=== PATIENT | male | born 1995 | race Caucasian/White ===

== ENCOUNTER 2017-05-10 10:22 | Emergency (ER) | payer OTHER, SELFPAY ==
[2017-05-10 10:23] VITALS: BP 129/76; PULSE 77; RESP 11; TEMP 37.1; O2SAT 100; BMI 21.8
--- NOTE | 2017-05-10 10:40 | RAD_ITS ---
STUDY: X-RAY CHEST REASON FOR EXAM: Male, 21 years old. Chronic left-sided chest pain. TECHNIQUE: PA and lateral views of the chest. COMPARISON: None. FINDINGS: EKG electrodes are seen. The lungs are clear and expanded. There is no demonstrated pleural abnormality. Normal size heart. Normal mediastinum and everardo. Normal visualized pulmonary arteries. Normal visualized aortic arch and descending thoracic aorta. Normal visualized thoracic spine. Normal visualized ribs, clavicles, and shoulders. There is no demonstrated abnormality of the visualized soft tissue structures of the upper abdomen. RAD/Chest PA and Lateral IMPRESSION: Normal x-ray examination of the chest. Electronically Signed: Roman Stewart MD at 11:04 EST Tel [phone], Service support ,
--- NOTE | 2017-05-10 11:15 | EKG12_ITS ---
Test Reason : CP Blood Pressure : / mmHG Vent. Rate : 072 BPM Atrial Rate : 072 BPM P-R Int : 106 ms QRS Dur : 092 ms QT Int : 362 ms P-R-T Axes : 039 079 032 degrees QTc Int : 396 ms Sinus rhythm with short NC Confirmed by DIANE SMITH, VICKEY ([id number]), news editor SHAYY CALDWELL ([id number] on 05/13/2017 11:18:37 AM Referred By: Confirmed By:VICKEY CONTRERAS MD
[2017-05-10 11:26] VITALS: BP 122/65; PULSE 69; RESP 16; O2SAT 100
--- NOTE | 2017-05-10 11:37 | ED.VISSUMM ---
- ER Visit Summary Date of Service: 05/10/17 Chief Complaint: Intermittent left-sided chest pain History of Present Illness: The patient is a 21 M presents because of intermittent left-sided chest pain. He has had pain off and on for 1 month. Initially thought he may have bruised a rib. He denies fever, chills night sweats. He denies rhinorrhea, earache sore throat. He denies cough or pleuritic pain. He has no history of VTE or any risk factors. He denies any leg pain, swelling or discoloration. He denies any GI symptoms. Physical Examination: Vital signs are normal for age. Head is atraumatic normocephalic. Pupils are equal round reactive. Extraocular muscles are intact. TMs are pearly white with landmarks noted. Nares patent with no drainage. Posterior pharynx without erythema or exudate. Uvula is midline. There is no dysphonia or dysphasia. Trachea is midline. There is no stridor with auscultation of the neck. Heart is regular without murmur, gallop or rub. S1 and S2 are normal. Lungs are clear to auscultation with good movement of air bilaterally. Abdomen is soft nontender. There is no hepatosplenomegaly. There is no asymmetry, swelling, discoloration, leg vein distention, palpable cords or tenderness along the distribution of the deep venous system. There is no evidence of trauma and there is no rash or lesions noted. Test Results: EKG obtained per nursing protocol revealed a sinus rhythm rate of 72 with shortened [place] interval. Two-view chest x-ray is negative for pneumothorax, effusion, infiltrate and the cardiac silhouette and mediastinum are normal. Bony structures are normal. Emergency Department Course and Treatment: X-rays obtained to evaluate for pneumothorax etc. EKG per nurse protocol. Treatment Plan: Appropriate home-going instructions Disposition: Discharged to home Impression: Intermittent left-sided chest pain unknown etiology initial encounter This note was generated with [email or web address] dictation software. It may contain incorrect words, spelling, and punctuation that were not noted in review of the chart prior to signing ED Disposition - Plan for ED Patient: Disposition: Home or Assisted Living Chief Complaint: Chest Pain Instructions: ED Chest Pain Atypical Unkn Cause Referrals: Nikko Whaley MD [Primary Care Provider] - As Needed
--- NOTE | 2017-05-10 11:40 | ED.DCSUM_ITS ---
- ER Visit Summary Date of Service: 05/10/17 Chief Complaint: Intermittent left-sided chest pain History of Present Illness: The patient is a 21 M presents because of intermittent left-sided chest pain. He has had pain off and on for 1 month. Initially thought he may have bruised a rib. He denies fever, chills night sweats. He denies rhinorrhea, earache sore throat. He denies cough or pleuritic pain. He has no history of VTE or any risk factors. He denies any leg pain, swelling or discoloration. He denies any GI symptoms. Physical Examination: Vital signs are normal for age. Head is atraumatic normocephalic. Pupils are equal round reactive. Extraocular muscles are intact. TMs are pearly white with landmarks noted. Nares patent with no drainage. Posterior pharynx without erythema or exudate. Uvula is midline. There is no dysphonia or dysphasia. Trachea is midline. There is no stridor with auscultation of the neck. Heart is regular without murmur, gallop or rub. S1 and S2 are normal. Lungs are clear to auscultation with good movement of air bilaterally. Abdomen is soft nontender. There is no hepatosplenomegaly. There is no asymmetry, swelling, discoloration, leg vein distention, palpable cords or tenderness along the distribution of the deep venous system. There is no evidence of trauma and there is no rash or lesions noted. Test Results: EKG obtained per nursing protocol revealed a sinus rhythm rate of 72 with shortened [place] interval. Two-view chest x-ray is negative for pneumothorax, effusion, infiltrate and the cardiac silhouette and mediastinum are normal. Bony structures are normal. Emergency Department Course and Treatment: X-rays obtained to evaluate for pneumothorax etc. EKG per nurse protocol. Treatment Plan: Appropriate home-going instructions Disposition: Discharged to home Impression: Intermittent left-sided chest pain unknown etiology initial encounter This note was generated with [employer] dictation software. It may contain incorrect words, spelling, and punctuation that were not noted in review of the chart prior to signing ED Disposition - Plan for ED Patient: Disposition: Home or Assisted Living Chief Complaint: Chest Pain Instructions: ED Chest Pain Atypical Unkn Cause Referrals: Nikko Whaley MD [Primary Care Provider] - As Needed
[2017-05-10 11:49] VITALS: BP 118/73; PULSE 71; RESP 11; O2SAT 100
== END 2017-05-10 11:52 | disposition home or self-care (01) ==
PROVIDERS: Emergency Provider Emergency Medicine; Family Provider Family Medicine; PCP Family Medicine
DX: R07.9 Chest pain, unspecified (principal)
CPT/HCPCS: 71046; 93005; 99282; A4216

== ENCOUNTER 2018-01-15 18:58 | Emergency (ER) | payer OTHER, SELFPAY ==
[2018-01-15 19:00] VITALS: BP 123/70; PULSE 88; RESP 17; TEMP 37.2; O2SAT 97; BMI 23.3
--- NOTE | 2018-01-15 20:10 | ED.VISSUMM ---
- ER Visit Summary Date of Service: 01/15/18 Chief Complaint: I have bronchitis History of Present Illness: The patient is a 22 M who presents with chief complaint of I have bronchitis . Patient denies fever or chills. He denies rhinorrhea, congestion, postnasal drainage, sore throat or earache. He denies cough. He states he has shortness of breath and difficulty breathing. He denies chest pain. He denies history of PE or DVT and he has no risk factors. He denies leg pain, swelling discoloration. He works in the heating and cooling industry. Mother states when he initially started he is around dust. He states he is no longer around dust. He is a non-smoker. There is no family history of asthma. Physical Examination: Vital signs noted and blood pressure slightly elevated 123/70. Head is atraumatic normocephalic. Pupils are equal round reactive. Extraocular muscles are intact. TMs are pearly white with landmarks noted. Nares patent with no drainage. Posterior pharynx without erythema or exudate. Uvula is midline. There is no dysphonia or dysphasia. Trachea is midline. There is no stridor with auscultation of the neck. Heart is regular without murmur, gallop or rub. With forced expiration rhonchi were noted right greater than left. Abdomen soft nontender. There is no asymmetry, swelling, discoloration, leg vein distention, palpable cords or tenderness along the distribution of the deep venous system. Neuro exam is nonfocal Test Results: None Emergency Department Course and Treatment: 6 puffs metered-dose inhaler with spacer and reassessment. On reassessment there is no wheezing or rhonchi noted Treatment Plan: Note for work and appropriate home-going instructions Disposition: Discharged home in stable improved condition Impression: Bronchospasm This note was generated with [employer] dictation software. It may contain incorrect words, spelling, and punctuation that were not noted in review of the chart prior to signing ED Disposition - Plan for ED Patient: Disposition: Home or Assisted Living Chief Complaint: Chest Other Instructions: ED Wheezing Prescriptions: Albuterol Inhaler [Ventolin Hfa] 2 puff INHALATION Q4H PRN PRN #1 inhaler PRN Reason: Dyspnea or wheezing Referrals: Lazaro Beck, [facility] [Primary Care Provider] - As Needed
[2018-01-15 20:23] VITALS: BP 136/67; PULSE 88; RESP 17; O2SAT 97
== END 2018-01-15 20:24 | disposition home or self-care (01) ==
PROVIDERS: Emergency Provider Emergency Medicine; Family Provider Nurse Practitioner Family; PCP Nurse Practitioner Family
DX: J98.01 Acute bronchospasm (principal)
CPT/HCPCS: 94640; 99282

== ENCOUNTER → 2021-04-03 | Outpatient (CLI) | payer OTHER, SELFPAY | END | disposition home or self-care (01) | LOC: LABSPEC 13:05 | PROVIDERS: PCP Nurse Practitioner Family; Referring Provider Physician Assistant Medical; Visit Provider Physician Assistant Medical | DX: U07.1 COVID-19 (principal) | CPT/HCPCS: 87635; U0005; U0003 ==